=== PATIENT | female | born 1930 | race Caucasian/White ===

== ENCOUNTER → 2016-10-23 08:08 | Outpatient (CLI) | payer MEDICARE ==
[2010-12-08 06:41] VITALS: BMI 31.0
== END | disposition home or self-care (01) ==
LOC: D.RT 08:08
DX: J44.9 Chronic obstructive pulmonary disease, unspecified (principal)

== ENCOUNTER → 2017-01-13 12:34 | Outpatient (CLI) | payer MEDICARE ==
[2010-12-08 06:41] VITALS: BMI 31.0
== END | disposition home or self-care (01) ==
LOC: D.LAB 12:34
DX: J44.9 Chronic obstructive pulmonary disease, unspecified (principal)

== ENCOUNTER → 2017-07-21 08:44 | Outpatient (CLI) | payer OTHER ==
[2010-12-08 06:41] VITALS: BMI 31.0
== END | disposition home or self-care (01) ==
LOC: D.RAD 07-19 10:45 → D.RT 07-19 11:00 → D.LAB 07-19 11:45 → D.RT 08:44
DX: J44.9 Chronic obstructive pulmonary disease, unspecified (principal); E88.01 Alpha-1-antitrypsin deficiency

== ENCOUNTER 2017-12-07 11:24 | Outpatient (CLI) | payer OTHER ==
[~2017-12-07] VITALS: Ht 167.6 cm; Wt 79.5 kg
--- NOTE | ~2017-12-07 | HEMODYNAMI ---
PATIENT:DINORA HURD MEDICAL RECORD: [id number] : 34 LOCATION:D.CAT ADMISSION DATE: 12/07/17 Generatedon:12/07/201715:06 Patient name: DINORA HURD Patient #: [id number] SSN: D OB: 1930 Date of study: 12/07/2017 Page: Of Hemodynamic Procedure Report Patient Data Patient Demographics Procedure consent was obtained First Name: DINORA Gender: Female Last Name: VANNESSA : 1930 Middle Initial: D Age: 87 year(s) Patient #: [id number] Race: Unknown Additional ID: [id number] Contact details [address]: [address] [place] [address] State: [place] City: [place] Zip code: [address] Past Medical History Allergies Allergen Reaction Date Comments Reported Other allergy 12/07/2017 Sulfa, Tetanus Admission Admission Data Admission Date: 12/07/2017 Admission Time: 11:24 Weight (lbs.): 174.17 Weight (kg.): 79 Procedure Procedure Types Cath Procedure Diagnostic Procedure PPM/ICD Permanent Pacer Generator Exg. Sedation Charges Moderate Sedation up to 15 minutes Procedure Description Procedure Date Procedure Date: 12/07/2017 Procedure Start Time: 14:49 Procedure End Time: 15:04 Procedure Staff Name Function Tru Gama MD Assisting physician Rosa M Salomon RT Monitor Jessica Lunsford RN Nurse Corie Tian RT Scrub Procedure Data Cath Procedure Estimated blood loss: 10 ml Procedure Complications No complications Procedure Medications Medication Administration Route Dosage 0.9% NaCl I.V. 100 ml/hr Ancef (1Gm/50ml NS) I.V.P.B 1 g Ancef Irrigation Topical 1 g (1gm/500ml NS) Lidocaine 1% added to field 20 Versed I.V. 2 mg Fentanyl I.V. 50 mcg Oxygen etCO2 Nasal cannula 2 l/min Hemodynamics Rest Heart Rate: 65 (bpm) Snapshots Pre Cath Intra NCS Post Cath Vital Signs Time Heart Resp SPO2 etCO2 NIBP (mmHg) Rhythm Pain Sedation Rate (ipm) (%) (mmHg) Status Level (bpm) 14:21:40 66 15 96 30 184/83(145) Paced 0 (11) 10(A) , No pain 14:26:25 65 14 98 30 155/76(126) Paced 0 (11) 10(A) , No pain 14:30:47 64 10 97 25 133/66(120) Paced 0 (11) 10(A) , No pain 14:35:13 65 10 97 30 122/55(95) Paced 0 (11) 10(A) , No pain 14:39:36 65 10 96 31.2 124/63(100) Paced 0 (11) 10(A) , No pain 14:43:58 65 10 96 33 131/65(113) Paced 0 (11) 10(A) , No pain 14:48:20 64 13 96 30.6 110/59(91) Paced 0 (11) 10(A) , No pain 14:52:40 63 11 97 32 127/60(101) Paced 0 (11) 10(A) , No pain 14:57:04 68 12 95 33.6 129/61(102) Paced 0 (11) 10(A) , No pain 15:01:29 75 9 96 35 114/58(104) Paced 0 (11) 10(A) , No pain Medications Time Medication Route Dose Verified Delivered Reason Notes Effecti veness by by 14:27:27 Oxygen etCO2 2 Hindu Jessica used for Nasal l/min Rene Lunsford procedure cannula RN 14:27:27 0.9% NaCl I.V. 100 Hindu Jessica used for ml/hr Rene Lunsford api product manager 14:27:38 Ancef I.V.P.B 1 g Hindu Jessica Per (1Gm/50ml Rene Lunsford physician NS) RN 14:27:51 Ancef Topical 1 g Hindu Hindu Per Irrigation Rene Gama MD physician (1gm/500ml NS) 14:28:04 Lidocaine added 20ml Tru Ott for local 1% to vial Rene Gama MD anesthetic field 14:47:23 Versed I.V. 2 mg Hindu Jessica for Rene Lunsford sedation RN 14:47:31 Fentanyl I.V. 50 Tru calzada [facility] [place] Rene Lunsford sedation home security alarm installer Log Time Note 14:06:49 Patient Weight : 174.17 lbs 14:08:05 Diagnostic Cath status Elective 14:08: Jessica Lunsford RN sent for patient. Start room use. 14::08 Time tracking: Regular hours (M-F 7:00 - 5:00) 14:08:13 Plan of Care:Hemodynamics will remain stable., Cardiac rhythm will remain stable., Comfort level will be maintained., Respiratory function will remain adequate., Patient/ family verbilizes understanding of procedure., Procedure tolerated without complication., Recovers from procedure without complications.. 14:08:38 Patient received from Pre/Post Procedure Room to [facility] 2 Alert and oriented. Tansferred to table in Supine position. 14:08:43 Warm blankets applied, and scooby hugger turned on for patient comfort. 14:08:44 Correct patient and procedure confirmed by team. 14:08:45 Signed procedure consent form obtained from patient. 14:20:13 Vital chart was started 14:26:59 [employer] registration representative Homer Omer present for procedure. 14:27:27 Oxygen 2 l/min etCO2 Nasal cannula was administered by Jessica Lunsford RN; used for procedure; 14:27:27 0.9% NaCl 100 ml/hr I.V. was administered by Jessica Lunsford RN; used for procedure; 14:27:38 Ancef (1Gm/50ml NS) 1 g I.V.P.B was administered by Jessica Lunsford RN; Per physician; 14:27:51 Ancef Irrigation (1gm/500ml NS) 1 g Topical was administered by Tru Gama MD; Per physician; 14:28:04 Lidocaine 1% 20ml vial added to field was administered by Tru Gama MD; for local anesthetic; 14:28:21 Grounding pad site Left thigh. 14:28:23 Grounding pad site free from injury. 14:28:53 Use device set RENE PPM 14:29:02 2-0 Ticron Multipack ([id number]) opened to sterile field. 14:29:04 3-0 Vicryl Single Pack [id number] opened to sterile field. 14:29:04 5-0 Monocryl PS2 [id number] opened to sterile field. 14:29:08 Cautery Tip Innovation Manager opened to sterile field. 14:29:08 Cautery Pushbutton Pencil opened to sterile field. 14:29:10 Mepilex Dressing ([id number]) opened to sterile field. 14:29:26 Baseline sample Acquired. 14:29:27 ECG and BP/O2 sat monitors applied to patient. 14:29:41 Rhythm: paced 14:29:44 Full Disclosure recording started 14:29:55 H&P Date Dictated: 11/29/2017 Within 30 days and on chart.. 14:30:01 Pre-procedure instructions explained to patient. 14:30:04 Family in waiting room. 14:30:06 Patient NPO since Midnight. 14:30:30 Patient allergic to Other allergySulfa, Tetanus 14:30:44 Was the patient premedicated? Yes 14:30:46 Is patient on blood thinner?No 14:30:49 Patient diabetic? No. 14:31:07 Snore? No 14:31:09 Sleep apnea? No 14:31:13 Airway obstruction? Yes COPD 14:31:21 Patient pain scale 0/10 ?. 14:32:00 Lab results completed and on chart. 14:32:17 Right chest area was prepped with dura-prep and draped in sterile fashion 14:32:37 Alarms reviewed by R. N. 14:32:38 Sharps counted by scrub and verified by R.N. 14:32:40 Physician paged 14:33:37 Medtronic Advisa MRI PPM Dual Generator [id number] opened to sterile field. 14:47:08 Physician arrived 14:47:08 --------ALL STOP TIME OUT------ 14:47:09 Final Timeout: patient, procedure, and site verified with staff and physician. All members of the team are in agreement. 14:47:20 Right chest site verified by team. 14:47:23 Versed 2 mg I.V. was administered by Jessica Lunsford RN; for sedation; 14:47:26 Physical assessment completed. ASA score P 2 - A patient with mild systemic disease as per Tru Gama MD. 14:47:29 Sedation plan: IV Moderate Sedation Medication:Versed, Fentanyl 14:47:31 Fentanyl 50 mcg I.V. was administered by Jessica Lunsford RN; for sedation; 14:48:00 Procedure started. 14:49:21 Lidocaine 1% was administered to right subclavicular area by Tru Gama MD . 14:49:29 Incision made to right subclavicular area. 14:49:46 Generator pocket made/opened. 14:51:44 PPM Dual was removed.. 14:51:48 PPM Dual was attached to lead(s) and inserted into pocket. 14:51:53 PPM Dual was inserted subcutaneously to right chest. 14:51:57 Device pocket was irrigated with Ancef. 14:53:31 Subcutaneous closure was completed with 3-0 vicryl. 14:54:46 Skin closure was completed with 5-0 monocryl. 14:56:19 Parameters-- Generator: Mode: dddr. Lower Rate: 60bpm. Upper Rate: 120bpm. 14:57:32 Parameters--Ventricular P/R Wave: 3.8mV. Current: 1.5mA; Threshold: 1.0V; Impedence: 631OHMS. 14:59:23 Parameters--Atrial P/R Wave: 2.1mV. Current: 1.0mA; Threshold: 34V; Impedence: 588OHMS. 15:02:18 Rt Chest incision was dressed with Mepilex dressing. 15:02:23 Procedure ended.(Physican Out) 15:02:36 Insertion/operative site no bleeding no hematoma. 15:03:00 Post-procedure physical assessment completed. ASA score P 2 - A patient with mild systemic disease as per Tru Gama MD. 15:03:05 Post procedure rhythm: paced 15:03:08 Estimated blood loss: 10 ml 15:03:11 Post procedure instruction explained to patient.Patient verbalizes understanding. 15:03:30 Procedure type changed to Cath procedure, Diagnostic procedure, PPM/ICD, Permanent Pacer Generator Exg., Sedation Charges, Moderate Sedation up to 15 minutes 15:03:31 Procedure and supply charges have been captured, reviewed, submitted and are correct. 15:03:56 Procedure Complication : No complications 15:03:59 Vital chart was stopped 15:04:00 See physician's report for complete and final results. 15:04:02 Report given to Pre/Post Procedure Room. 15:04:07 Patient transfered to Pre/Post Procedure Room with Stretcher. 15:04:09 Procedure ended. 15:04:09 Full Disclosure recording stopped 15:04:13 End room use (Document Last) Device Usage Item Name Manufacture Quantity Catalog Hospital Part Current Minimal Lot# / Number Charge Number Stock Stock Serial# Code 2-0 Ticron Ethicon 2 [id number] [id number] 5 Multipack ([id number]) 3-0 Vicryl Ethicon 1 [id number] [id number] [id number] [id number] 5 Single Pack [id number] 5-0 Monocryl Ethicon 1 [id number] [id number] 5 PS2 Y495G Cautery Tip Microtek 1 [id number] [id number] [id number] 5 [employer] Cautery Microtek 1 [id number] 69575 [id number] 5 Push[employer] Pencil Mepilex Cardinal 1 [id number] [id number] [id number] [id number] 5 [facility] ([id number]) Medtronic Medtronic 1 [id number] 5 Advisa MRI [id number] PPM Dual exp.5 [id number] Signature Audit [place] Stage Time Signature Unsigned Intra-Procedure 12/07/2017 Rosa M Salomon 3:06:14 PM RT(R) Signatures Monitor : Rosa M Salomon Signature : RT Date : Time : [address] [place] [address]
--- NOTE | ~2017-12-07 | OP ---
PATIENT NAME: DINORA HURD MEDICAL RECORD: [id number] :34 LOCATION:D.CAT ADMISSION DATE: SURGEON: TRU LÓPEZ MD DATE OF OPERATION: 12/07/2017 PREOPERATIVE DIAGNOSES: 1. End-of-life pacemaker. 2. Hypertension. 3. Valvular heart disease. 4. Chronic obstructive pulmonary disease. POSTOPERATIVE DIAGNOSES: 1. End-of-life pacemaker. 2. Hypertension. 3. Valvular heart disease. 4. Chronic obstructive pulmonary disease. PROCEDURE: Right subclavian vein pacemaker generator exchange. SURGEON: Tru López MD REPORT OF PROCEDURE: The patient's left chest was prepped and draped in sterile fashion. A 20 mL of 1% lidocaine with epinephrine was infused into the surrounding tissues. A transverse incision was made overlying the pacemaker. Electrocautery was used to dissect through subcutaneous tissues and the pacemaker was eventually eviscerated through the wound. The stitch holding in place was cut free. The pacemaker was detached from the 2 indwelling leads and a new pacemaker generator was attached to the leads. The pacemaker was then placed into the subcutaneous pouch and sutured down with a single interrupted 0 Ti-Cron. We irrigated out the wound with antibiotic solution. The subcutaneous tissues were then reapproximated with interrupted 3-0 Vicryl and the skin was closed with running subcutaneous 5-0 Monocryl. COMPLICATIONS: None. CONDITION: Stable. ANESTHESIA: Local MAC. BLOOD LOSS: Minimal. TRANSINT:[id number] Voice Confirmation ID: [id number] DOCUMENT ID: [id number] TRU LÓPEZ MD at 1441 CC: REBA GUTIÉRREZ M.D. and LEXUS PINEDA MD [id number] DICTATION DATE: 12/07/17 1501 AGRICULTURAL ECONOMICS PROFESSOR: 12/07/17 1512 DEP CLI 12/07/17 [place] [id number] [place] [id number]
[2017-12-07 11:56] VITALS: BP 164/72; Ht 167.6 cm; Wt 79.5 kg
[2017-12-07] MEDS ORDERED: LEVOTHYROXINE50 MCG PO (11:57)
[2017-12-07] MEDS ORDERED: COZAAR50 MG PO (11:57)
[2017-12-07] MEDS ORDERED: TRELEGY AER ELL (11:57)
[2017-12-07] MEDS ORDERED: CARVEDILOL TAB 3.1 (11:58)
[2017-12-07] MEDS ORDERED: OXYBUTYNIN CHLOR5 MG PO (11:58)
[2017-12-07 12:24] LABS: HEMATOCRIT 42.6 % (36.0-48.0); HEMOGLOBIN 14.6 g/dL (12-16); MCH 32.2 pg (26.0-34.0); MCHC 34.3 g/dL (31.0-37.0); MCV 93.8 fL (80.0-100.0); MEAN PLATELET VOLUME 10.3 fL (7.4-10.4); RBC 4.54 10x6/uL (4.00-5.40); RDW 13.6 % (11.5-14.5); WBC 8.4 10x3/uL (4.8-10.8)
[2017-12-07 12:33] LABS: INR 1.06 (0.85-1.17); PROTIME 13.4 SECONDS (11.6-15.0)
[2017-12-07 12:34] LABS: ANION GAP 17.4 mmol/L (8-16); CALCIUM 9.1 mg/dL (8.5-10.1); CARBON DIOXIDE 22.5 mmol/L (21.0-32.0); CREATININE - SERUM 1.1 mg/dL (0.6-1.3); POTASSIUM - SERUM 4.9 mmol/L (3.5-5.1)
[2017-12-07] MEDS ORDERED: NORCO 10-325 TA1 TAB PO (15:06)
== END 2017-12-07 16:17 | disposition home or self-care (01) ==
LOC: D.CATH 11:24
PROVIDERS: Internal Medicine Interventional Cardiology
DX: Z45.010 Encounter for checking and testing of cardiac pacemaker pulse generator [battery] (principal); I10 Essential (primary) hypertension; I38 Endocarditis, valve unspecified; J44.9 Chronic obstructive pulmonary disease, unspecified; Z01.812 Encounter for preprocedural laboratory examination

== ENCOUNTER → 2018-11-17 14:09 | Outpatient (CLI) | payer OTHER ==
[2017-12-07 11:56] VITALS: BMI 28.3
[~2018-11-17 14:09] MED LIST: CARVEDILOL TAB 3.1; COZAAR50 MG PO; LEVOTHYROXINE50 MCG PO; NORCO 10-325 TA1 TAB PO; OXYBUTYNIN CHLOR5 MG PO; TRELEGY AER ELL
== END | disposition home or self-care (01) ==
LOC: D.RT 14:09
PROVIDERS: ATTEND Internal Medicine Pulmonary Disease
DX: J44.9 Chronic obstructive pulmonary disease, unspecified (principal)

== ENCOUNTER → 2019-11-24 14:00 | Outpatient (CLI) | payer OTHER ==
[2017-12-07 11:56] VITALS: BMI 28.3
== END | disposition home or self-care (01) ==
LOC: D.LAB 14:00
PROVIDERS: ATTEND Internal Medicine Pulmonary Disease
DX: Z11.59 Encounter for screening for other viral diseases (principal)

== ENCOUNTER → 2019-11-28 08:23 | Outpatient (CLI) | payer OTHER ==
[2017-12-07 11:56] VITALS: BMI 28.3
== END | disposition home or self-care (01) ==
LOC: D.RT 11-17 11:00
PROVIDERS: ATTEND Internal Medicine Pulmonary Disease
DX: J44.9 Chronic obstructive pulmonary disease, unspecified (principal)

== ENCOUNTER → 2020-06-24 14:21 | Outpatient (CLI) | payer OTHER ==
[2017-12-07 11:56] VITALS: BMI 28.3
== END | disposition home or self-care (01) ==
LOC: D.CT 14:21
PROVIDERS: ATTEND Internal Medicine Cardiovascular Disease
DX: I65.21 Occlusion and stenosis of right carotid artery (principal)